=== PATIENT | female | born 1985 | race Caucasian/White ===

== ENCOUNTER → 2016-08-19 | Outpatient (CLI) | payer MEDICAID ==
--- NOTE | 2016-08-19 08:47 | RADIOLOGY REPORT (SQ) ---
EXAM DESCRIPTION: CT SINUSES FOR ENT COMPLETED DATE/TIME: 08/19/2016 8:24 am REASON FOR STUDY: DEVIATED NASAL SEPTUM (J34.2) J34.2 DEVIATED NASAL SEPTUM COMPARISON: CT facial bones 03/11/2013 TECHNIQUE: Noncontrast scanning through the paranasal sinuses using bone algorithm. Reconstructed MPR images reviewed. All images stored on PACS. Images acquired for image guided surgery. All CT scanners at this facility use dose modulation, iterative reconstruction, and/or weight based d osing when appropriate to reduce radiation dose to as low as reasonably achievable (ALARA). [facility]: Dose Right [facility]: CareDose [facility]: Dose Right [facility]: Teradose 4D [facility]: [employer] RADIATION DOSE: 59.05 mGy. FINDINGS: NASAL PASSAGES: Clear. No polyps or masses. OSTEOMEATAL UNITS AND NASOFRONTAL DUCTS: Nasofrontal ducts are patent on coronal images 73 through th e 2. There is some mucous membrane thickening along the right nasofrontal duct on coronal image 74. Ostiomeatal units are patent on coronal image 87. There is mild mucous membrane thickening bilateral ly. MAXILLARY SINUSES: Well pneumatized. Mild mucous membrane thickening along the floor of the right ma xillary sinus. Maxillary sinus outlets are patent. ETHMOID SINUSES: Mild mucous membrane thickening along the right anterior ethmoid air cells. SPHENOID SINUSES: Mucus or serous retention cyst in the posterior aspect right sphenoid sinus. No sph enoethmoid air cells or pneumatized pterygoid recess. No pneumatized dorsal sella. FRONTAL SINUSES: Well-pneumatized and clear. MASTOID AIR CELLS: Clear. ORBITS: Normal and symmetrical. NASAL SEPTUM: Leftward nasal septal deviation with left nasal septal spur arm best shown on coronal r econstruction image 106. TEMPOROMANDIBULAR JOINTS: Normal. TURBINATES: No pneumatized turbinates. MUCOPERIOSTEAL THICKENING: No. MUCOCELE: No. OTHER: No other significant findings. IMPRESSION: No acute sinusitis. Mild mucous membrane thickening floor right maxillary sinus and along the bilateral maxillary sinus o utlets right fronto ethmoid junction TECHNICAL DOCUMENTATION: JOB ID: [id number] Quality ID # [id number]: Final reports with documentation of one or more dose reduction techniques (e.g., Au tomated exposure control, adjustment of the mA and/or kV according to patient size, use of iterative reconstruction technique) 2010 [employer]- All Rights Reserved
== END ==
LOC: RAD 07:58
PROVIDERS: ATTEND Otolaryngology
DX: J34.2 Deviated nasal septum (principal)
CPT/HCPCS: 70486

== ENCOUNTER → 2019-10-03 | Day surgery (SDC) | payer BC ==
[~2019-10-03] MED LIST: LIDOCAINE 2% INJ (20 MG/ML) 20 ML MDV ONE
--- NOTE | 2019-10-03 14:48 | WOMENS IMAGING REPORT ---
EXAM DESCRIPTION: PUNCTURE ASPIR OF BREAST CYST IMAGES COMPLETED DATE/TIME: 10/03/2019 2:09 pm REASON FOR STUDY: R92.8 OTHER ABNORMAL AND INCONCLUSIVE FINDINGS ON DIAGNOSTIC IMAGING OF REGLA R92.8 OTH ABN AND INCONCLUSIVE FINDINGS ON DX IMAGING OF [facility] COMPARISON: 09/06/2019. LIMITATIONS: None. PROCEDURE: The procedure was explained to the patient, including the possibility of complications as bleeding and infection. She asked that we proceed with the procedure. The lesion in the right breast was localized with ultrasound. Standard sterile technique and local anesthesia of 1% Lidocaine targeted to the previously localized area in the breast. With direct ultrasound visualization, the aspiration needle was advanced into the cyst. Benign-appearing fluid was aspirated and discarded. No immediate adverse effects. Post- procedure mammogram was not obtained. IMPRESSION: Successful ultrasound guided therapeutic cyst aspiration in the right breast. COMMENT: Patient medication list reviewed:Yes- Quality ID# [id number]:Eligible professional attests to docu menting in the medical record they obtained, updated, or reviewed the patient's current medications. TECHNICAL DOCUMENTATION: JOB ID: [id number] 2010 [employer]- All Rights Reserved Reading location - IP/workstation name: [email or web address]
== END ==
LOC: WI 12:59
PROVIDERS: ATTEND Nurse Practitioner Family
DX: R92.8 Other abnormal and inconclusive findings on diagnostic imaging of breast (principal)
CPT/HCPCS: 19000; J3490